=== PATIENT | female | born 1980 | race Caucasian/White ===

== ENCOUNTER 2020-10-30 10:38 | Emergency (ER) | payer BC ==
[2020-10-30] MEDS ORDERED: Aspirin 81 MG Tab.Chew PO ONE (10:51)
--- NOTE | 2020-10-30 10:54 | EDM.PDOC ---
ED HPI GENERAL MEDICAL PROBLEM - General Chief Complaint: Chest Pain Stated Complaint: CHEST PAIN/SOB Time Seen by Provider: 10/30/20 10:45 Source of Information: Reports: Patient History Limitations: Reports: No Limitations - History of Present Illness INITIAL COMMENTS - FREE TEXT/NARRATIVE: left side chest pain for the past 3-4 day , pain is epigastric, starts from the back and radiated to the front not associated with exertion , may happen at rest , does not wake her up at night But she was stressed over the weekend preparing for [employer] has history of untreated hyper lipidemia , possible borderline diabetes , GERD Grandfather had NV at about 50yrs of age has hypothyroidism , yet to start new dose of levothyroxine (125mcg) has history of GERD on medication , though had Easter over the weekend may have had Stress test done in 2019 ?? Onset: Gradual Onset Date: 10/26/20 Duration: Day(s):, Getting Worse, Intermittent, Recurring Location: Reports: Chest Quality: Reports: Sharp, Stabbing Severity: Moderate Improves with: Reports: None Worsens with: Reports: Rest, Movement Context: Reports: Activity, Other (no specific avtivity triggered onset of symptoms but she states she was busy preparing for easter over the weekend when the pain started) - Related Data Allergies Allergy/AdvReac Type Severity Reaction Status Date / Time erythromycin base Allergy Headache Verified 10/30/20 10:54 Home Meds: Home Meds Levothyroxine 112 mcg PO ACBREAKFAST 10/30/20 [History] Levothyroxine 125 mcg PO ACBREAKFAST 10/30/20 [History] Magnesium Oxide 400 mg PO DAILY #30 tablet 10/30/20 [Rx] Omeprazole 40 mg PO ACBREAKFAST 10/30/20 [History] Sucralfate 1 gm PO TID #30 tablet 10/30/20 [Rx] ED ROS GENERAL - Review of Systems Review Of Systems: Comprehensive ROS is negative, except as noted in HPI. Constitutional: Reports: Weight Gain HEENT: Reports: No Symptoms Respiratory: Reports: No Symptoms Cardiovascular: Reports: No Symptoms, Chest Pain, Dyspnea on Exertion Endocrine: Reports: Fatigue GI/Abdominal: Reports: Constipation. Denies: Diarrhea, Decreased Appetite, Difficulty Swallowing Musculoskeletal: Reports: Shoulder Pain, Arm Pain (anterior left shoulder is painful , has lifted a d sof ) Skin: Reports: No Symptoms Neurological: Reports: No Symptoms. Denies: Dizziness, Headache, Numbness, Tingling, Tremors, Trouble Speaking, Difficulty Walking, Change in Speech, Gait Disturbance Psychiatric: Reports: No Symptoms Hematologic/Lymphatic: Reports: No Symptoms Immunologic: Reports: No Symptoms ED EXAM, GENERAL - Physical Exam Exam: See Below Exam Limited By: No Limitations General Appearance: Alert, WD/WN, No Apparent Distress Eye Exam: Bilateral Eye: EOMI Ears: Normal External Exam Nose: Normal Inspection Throat/Mouth: Normal Inspection Head: Atraumatic, Normocephalic Neck: Normal Inspection, Supple, Non-Tender Respiratory/Chest: Lungs Clear, Normal Breath Sounds Cardiovascular: Normal Peripheral Pulses, Regular Rate, Rhythm Peripheral Pulses: 1+: Posterior Tibial (R) GI/Abdominal: Soft, Non-Tender Back Exam: Full Range of Motion Extremities: Arm Pain (left anterior shooulder pain noted on deep palpation) Psychiatric: Normal Affect, Normal Mood Skin Exam: Warm, Dry, Intact, Normal Color, No Rash Lymphatic: No Adenopathy #1 Interpretation EKG Date: 10/30/20 Time: 10:42 Rhythm: NSR Rate (Beats/Min): 85 [place]: Normal P-Wave: Present QRS: Normal ST-T: Normal QT: Normal Comparison: NA - No Prior EKG Course - Vital Signs Last Recorded V/S: Last Vital Signs Temp 36.7 C 10/30/20 10:38 Pulse 88 10/30/20 10:38 Resp 15 10/30/20 11:48 BP 113/80 10/30/20 11:48 Pulse Ox 100 10/30/20 11:48 - Orders/Labs/Meds Orders: Active Orders 24 hr Category Date Time Status EKG Documentation Completion [RC] ASDIRECTED Care 10/30/20 10:52 Active Chest 1V Frontal [CR] Stat Exams 10/30/20 10:51 Taken Magnesium Oxide Med 10/30/20 12:05 Once 800 mg PO ONETIME ONE Sodium Chloride 0.9% [Saline Flush] Med 10/30/20 11:47 Active 10 ml FLUSH ASDIRECTED PRN Peripheral IV Insertion Adult [OM.PC] Routine Oth 10/30/20 11:47 Ordered EKG 12 Lead [EK] Routine Ther 10/30/20 10:52 Ordered Medication Orders Sodium Chloride (Sodium Chloride 0.9% 10 Ml Syringe) 10 ml FLUSH ASDIRECTED PRN PRN Reason: Keep Vein Open Labs: Laboratory Tests 10/30/20 10/30/20 10/30/20 Range/Units 11:25 11:25 11:25 WBC 6.1 (3.0-10.3) x10-3/uL RBC 4.91 (3.60-5.20) x10(6)uL Hgb 11.9 (11.4-15.5) g/dL Hct 38.3 (34.2-48.2) % MCV 77.9 (76.7-100.5) fL MCH 24.3 (23.9-33.9) pg MCHC 31.2 L (31.9-34.8) g/dL RDW 15.1 (12.3-16.5) % Plt Count 245 (151-488) x10(3)uL MPV 8.9 (7.1-12.4) fL Neut % (Auto) 58.0 (30.8-76.2) % Lymph % (Auto) 30.9 (18.4-52.1) % [place] % (Auto) 6.4 (4.4-15.7) % Eos % (Auto) 4.2 (0.6-8.1) % Baso % (Auto) 0.5 (0.2-1.5) % Neut # (Auto) 3.5 (1.5-6.3) x10-3/uL Lymph # (Auto) 1.9 (1.0-4.4) x10-3/uL [place] # (Auto) 0.4 (0.3-1.0) x10-3/uL Eos # (Auto) 0.3 (0.0-0.8) x10-3/uL Baso # (Auto) 0.0 (0.0-0.1) x10-3/uL D-Dimer, Quantitative (0.0-0.59) mg/LFEU Sodium 139 (135-145) mmol/L Potassium 3.6 (3.5-5.3) mmol/L Chloride 98 L (100-110) mmol/L Carbon Dioxide 28 (21-32) mmol/L BUN 9 (7-18) mg/dL Creatinine 0.9 (0.55-1.02) mg/dL Est Cr Clr Drug Dosing 67.36 mL/min Estimated GFR (MDRD) > 60 (>60) BUN/Creatinine Ratio 10.0 (9-20) Glucose 98 (80-116) mg/dL Calcium 8.9 (8.6-10.2) mg/dL Magnesium (1.8-2.5) mg/dL Total Bilirubin 0.4 (0.1-1.3) mg/dL AST 20 (5-25) IU/L ALT 25 (12-36) U/L Alkaline Phosphatase 97 (56-112) IU/L Troponin I 6.1 (4.0-60.3) pg/mL NT-Pro-B Natriuret Pep 128 H (<=125) pg/mL Total Protein 7.6 (6.0-8.0) g/dL Albumin 3.7 (3.5-5.2) g/dL Globulin 3.9 g/dL Albumin/Globulin Ratio 1.0 Triglycerides (15-150) mg/dL Cholesterol (50-200) mg/dL LDL Cholesterol Direct (60-130) mg/dL HDL Cholesterol (40-75) mg/dL Cholesterol/HDL Ratio (0-5) TSH, Ultra Sensitive (0.36-3.74) IU/mL 10/30/20 10/30/20 10/30/20 Range/Units 11:25 11:25 11:25 WBC (3.0-10.3) x10-3/uL RBC (3.60-5.20) x10(6)uL Hgb (11.4-15.5) g/dL Hct (34.2-48.2) % MCV (76.7-100.5) fL MCH (23.9-33.9) pg MCHC (31.9-34.8) g/dL RDW (12.3-16.5) % Plt Count (151-488) x10(3)uL MPV (7.1-12.4) fL Neut % (Auto) (30.8-76.2) % Lymph % (Auto) (18.4-52.1) % [place] % (Auto) (4.4-15.7) % Eos % (Auto) (0.6-8.1) % Baso % (Auto) (0.2-1.5) % Neut # (Auto) (1.5-6.3) x10-3/uL Lymph # (Auto) (1.0-4.4) x10-3/uL [place] # (Auto) (0.3-1.0) x10-3/uL Eos # (Auto) (0.0-0.8) x10-3/uL Baso # (Auto) (0.0-0.1) x10-3/uL D-Dimer, Quantitative 0.35 (0.0-0.59) mg/LFEU Sodium (135-145) mmol/L Potassium (3.5-5.3) mmol/L Chloride (100-110) mmol/L Carbon Dioxide (21-32) mmol/L BUN (7-18) mg/dL Creatinine (0.55-1.02) mg/dL Est Cr Clr Drug Dosing mL/min Estimated GFR (MDRD) (>60) BUN/Creatinine Ratio (9-20) Glucose (80-116) mg/dL Calcium (8.6-10.2) mg/dL Magnesium 1.7 L (1.8-2.5) mg/dL Total Bilirubin (0.1-1.3) mg/dL AST (5-25) IU/L ALT (12-36) U/L Alkaline Phosphatase (56-112) IU/L Troponin I (4.0-60.3) pg/mL NT-Pro-B Natriuret Pep (<=125) pg/mL Total Protein (6.0-8.0) g/dL Albumin (3.5-5.2) g/dL Globulin g/dL Albumin/Globulin Ratio Triglycerides 74 (15-150) mg/dL Cholesterol 217 H (50-200) mg/dL LDL Cholesterol Direct 141 H (60-130) mg/dL HDL Cholesterol 64 (40-75) mg/dL Cholesterol/HDL Ratio 3.4 (0-5) TSH, Ultra Sensitive 2.32 (0.36-3.74) IU/mL Meds: Medications Generic Name Dose Route Start Last Admin Trade Name Freq PRN Reason Stop Dose Admin Sodium Chloride 10 ml 10/30/20 11:47 Sodium Chloride 0.9% 10 Ml Syringe FLUSH ASDIRECTED PRN Keep Vein Open Discontinued Medications Generic Name Dose Route Start Last Admin Trade Name Emir PRN Reason Stop Dose Admin Aspirin 324 mg 10/30/20 10:51 10/30/20 11:00 Aspirin 81 Mg Tab.Chew PO 10/30/20 10:52 324 mg ONETIME ONE Administration Pantoprazole Sodium 40 mg 10/30/20 11:17 10/30/20 11:30 Pantoprazole 40 Mg Vial IVPUSH 10/30/20 11:18 40 mg ONETIME ONE Administration Sucralfate 1 gm 10/30/20 11:17 10/30/20 11:47 Sucralfate 1 Gm Tab PO 10/30/20 11:18 1 gm ONETIME ONE Administration - Re-Assessments/Exams Free Text/Narrative Re-Assessment/Exam: 10/30/20 11:26 labs EKG done pt given Aspirin 10/30/20 12:16 discussed results with pt had Sucralfate , protonix , Did not have anymore chest pain while in the ER will need to have stress test: treat cholesterol , see PCP for further cardiac TAYLOR 10/30/20 12:26 Departure - Departure Time of Disposition: 12:30 Disposition: Home, Self-Care 01 Clinical Impression: Atypical chest pain, Shortness of breath, Hypomagnesemia Instructions: Nonspecific Chest Pain, Adult, [id number], Shortness of Breath, Adult, [id number], Hypomagnesemia Forms: ED Department Discharge Additional Instructions: 1) Start Aspirin 81mg daily till seen by your PCP 2) Low cholesterol diet , Exercise recommended 3) If pain gets worse , or reoccurs , you need to return to the ER 4) OK to start new dose of levothyroxine as recommended by your PCP 5) Call with any concerns Sepsis Event Note (ED) - Focused Exam Vital Signs: Vital Signs Temp Pulse Resp BP Pulse Ox 10/30/20 11:48 15 113/80 100 10/30/20 10:38 36.7 C 88 20 109/85 100 - My Orders Last 24 Hours: My Active Orders 10/30/20 10:51 Chest 1V Frontal [CR] Stat 10/30/20 10:52 EKG Documentation Completion [RC] ASDIRECTED EKG 12 Lead [EK] Routine 10/30/20 11:47 Sodium Chloride 0.9% [Saline Flush] 10 ml FLUSH ASDIRECTED PRN Peripheral IV Insertion Adult [OM.PC] Routine 10/30/20 12:05 Magnesium Oxide 800 mg PO ONETIME ONE - Assessment/Plan Last 24 Hours: My Active Orders 10/30/20 10:51 Chest 1V Frontal [CR] Stat 10/30/20 10:52 EKG Documentation Completion [RC] ASDIRECTED EKG 12 Lead [EK] Routine 10/30/20 11:47 Sodium Chloride 0.9% [Saline Flush] 10 ml FLUSH ASDIRECTED PRN Peripheral IV Insertion Adult [OM.PC] Routine 10/30/20 12:05 Magnesium Oxide 800 mg PO ONETIME ONE
[2020-10-30] MEDS ORDERED: Sucralfate 1 GM Tab PO ONE (11:17)
[2020-10-30] MEDS ORDERED: Pantoprazole 40 MG Vial IVPUSH ONE (11:17)
[2020-10-30] MEDS ORDERED: Sodium Chloride 0.9% 10 ML Syringe FLUSH PRN (11:47)
[2020-10-30] MEDS ORDERED: Magnesium Oxide 400 MG Tab PO ONE (12:05)
[2020-10-30] MEDS ORDERED: Magnesium Oxide 400 MG Tab ONE (12:20)
--- NOTE | 2020-10-30 16:12 | CR ---
INDICATION: Chest pain. CHEST ONE VIEW: An AP portable upright view of the chest was obtained 10/30/20 - no comparisons. The heart appeared prominent emphasized by AP positioning. Mediastinum was unremarkable. There is an area of increased density at the right lower lung field, etiology indeterminate, but could represent either a mass or infiltrate. A localized eventration is felt to be a possibility also. PA and lateral views of the chest may be helpful in this regard. Otherwise, no definite active infiltrate or effusion was identified . Exogenous obesity is noted. IMPRESSION: 1. Increased density at the right lower lung field. Suggest PA and lateral views of the chest for further evaluation, when clinically possible. 2. Exogenous obesity. 3. Cannot exclude a mild degree of cardiac enlargement. MTDD
== END 2020-10-30 12:47 | disposition home or self-care (01) ==
LOC: FB.ED 10:38
DX: R07.89 Other chest pain (principal); E83.42 Hypomagnesemia; R06.02 Shortness of breath; E03.9 Hypothyroidism, unspecified; K21.9 Gastro-esophageal reflux disease without esophagitis; Z79.899 Other long term (current) drug therapy; Z88.1 Allergy status to other antibiotic agents
CPT/HCPCS: 36415; 71045; 80053; 80061; 83735; 83880; 84443; 84484; 85025; 85379; 93005; 96374; 99285-25; A9270-GY; C9113